=== PATIENT | female | born 1990 | race Caucasian/White ===

== ENCOUNTER 2018-03-28 12:46 | Emergency (ER) | payer OTHER ==
[2018-03-28 13:04] VITALS: BP 131/89
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
== END 2018-03-28 13:07 | disposition home or self-care (01) ==
LOC: ED 12:46
DX: T75.4XXA Electrocution, initial encounter (principal)
CPT/HCPCS: 93005; 99282

== ENCOUNTER 2018-04-05 09:14 | Outpatient (CLI) | payer OTHER ==
[2018-04-05] MEDS ORDERED: BUFFERED LIDOCAINE 10 ML SYRINGE ONE (09:23)
[2018-04-05] MEDS ORDERED: LIDOCAINE 1% 10 ML MDV ONE (09:23)
[2018-04-05] MEDS ORDERED: IOTHALAMATE MEGLUMINE 50 ML VIAL ONE (09:23)
[2018-04-05] MEDS ORDERED: GADOPENTETATE DIMEGLUMINE 5 ML VIAL IVP ONE ×2 (09:24→10:38)
[2018-04-05] MEDS ORDERED: BUFFERED LIDOCAINE 10 ML SYRINGE IU ONE (10:37)
[2018-04-05] MEDS ORDERED: IOTHALAMATE MEGLUMINE 50 ML VIAL IVP ONE (10:38)
--- NOTE | 2018-04-05 13:55 | XRAY Report ---
Reason: PAIN IN UNSPECIFIED HIP Procedure Date: 04/05/2018 Accession Number: [id number] / [id number] Procedure: FL - Arthrogram Needle Placement CPT Code: FULL RESULT: EXAM: FLUOROSCOPIC GUIDANCE EXAM DATE: 04/05/2018 10:32 AM. CLINICAL HISTORY: Pain in right hip. Contrast injection for MR arthrogram. COMPARISON: None. TECHNIQUE: Informed consent was obtained. Right common femoral artery was located by palpation and marked on the skin. Entry site over the right femoral neck was localized with fluoroscopy and marked on the skin. Skin site was prepped and draped in the usual sterile fashion. Skin and deeper tissues were anesthetized with 8 mL of buffered 1% lidocaine. A 22-gauge spinal needle was advanced into the joint space, tip position was confirmed with injection of 4 mL of Conray contrast. An additional 14 mL of gadolinium/sterile saline solution (0.1 mL gadolinium in 20 mL normal saline) was then injected into the joint space without incident, and patient was sent for MRI. Patient tolerated the procedure well and went without complication. FINDINGS: SumLessful fluoroscopic-guided right hip injection for MR arthrogram. IMPRESSION: Fluoroscopic guidance provided for needle placement. Total fluoroscopy time: 40 seconds. Number of images: 1. [facility]
--- NOTE | 2018-04-05 17:22 | MRI Report ---
Reason: PAIN IN UNSPECIFIED HIP Procedure Date: 04/05/2018 Accession Number: [id number] / [id number] Procedure: MRI - Arthrogram Hip RT CPT Code: FULL RESULT: EXAM: RIGHT HIP MRI ARTHROGRAM WITH CONTRAST EXAM DATE: 04/05/2018 11:47 AM. CLINICAL HISTORY: Right hip pain. COMPARISON: None. TECHNIQUE: Multiplanar, multisequence T1-weighted and fluid-sensitive, small [id number] sequences of the hip and large ojerh-hb-[id number] sequences of the pelvis after an arthrographic injection of dilute gadolinium, dictated under a separate exam. Other: None. FINDINGS: Bones: No fractures or subluxations. No marrow edema or bone lesions. Right Hip: No acetabular retroversion. The superior surface of the femoral head appears flattened, with an alpha angle of approximately 65 degrees. No loose bodies. The articular cartilage is intact. There is a very small tear of the anterosuperior labrum, with contrast tracking anterior to the anterior margin of the acetabulum, image 7/701. The ligamentum teres is intact. Other Joints: There is Modic type I signal change at the L5-S1 endplates. Musculature: No edema or fatty atrophy. The gluteus medius and minimus tendons are normal. The visualized hamstring tendons are normal. The ischiofemoral space is normal. Pelvic Cavity: The visualized viscera are unremarkable. No lymphadenopathy. No free fluid in the pelvis. Other: The visualized sciatic nerves are unremarkable. No bursitis. The subcutaneous tissues are unremarkable. IMPRESSION: 1. 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 2. Small anterosuperior labral tear. 3. No appreciable osteoarthritis of the hip. 4. Mild degenerative change of the lumbar spine at L5-S1. RADIA MUSCULOSKELETAL RADIOLOGY SECTION
== END 2018-04-05 09:15 | disposition home or self-care (01) ==
LOC: DI 09:14
PROVIDERS: ATTEND Registered Nurse Diabetes Educator
DX: M25.559 Pain in unspecified hip (principal); S73.191A Other sprain of right hip, initial encounter
CPT/HCPCS: 27093; 73722; 77002; Q9961